=== PATIENT | female | born 1995 | race Caucasian/White ===

== ENCOUNTER 2021-02-12 17:58 | Emergency (ER) | payer OTHER ==
[~2021-02-12] VITALS: Ht 162.6 cm; Wt 111.1 kg
--- NOTE | 2021-02-12 18:08 | NUR ---
TO ER BED 2, C/O LT EXTREMITY PAIN 03/13, ANKLE FRACTURE FROM MARY BROWN, GISELLEOX4. FAMILY AT BEDSIDE
[2021-02-12] MEDS ORDERED: KETOROLAC TROMETHAMINE INJ 60 MG/2 ML VIAL IM ONE (19:30)
[2021-02-12] MEDS ORDERED: KETOROLAC TROMETHAMINE INJ 30 MG/ML VIAL ONE (19:50)
[2021-02-12] MEDS ORDERED: MORPHINE SULFATE INJ 2 MG/ML DISP.SYRIN IM ONE (20:00)
--- NOTE | 2021-02-12 20:16 | NUR ---
verbal order given to give IM medications as IV
[2021-02-12] MEDS ORDERED: MORPHINE SULFATE INJ 4 MG/ML DISP.SYRIN ONE ×2 (20:24→23:27)
[2021-02-12] MEDS ORDERED: CYCLOBENZAPRINE 10 MG TABLET PO ONE (22:00)
[2021-02-12] MEDS ORDERED: ONDANSETRON HCL/PF 4 MG/2 ML VIAL IV ONE (22:00)
[2021-02-12] MEDS ORDERED: ACETAMINOPHEN 325 MG TABLET PO ONE (22:00)
[2021-02-12] MEDS ORDERED: CYCLOBENZAPRINE 10 MG TABLET ONE (22:12)
[2021-02-12] MEDS ORDERED: ONDANSETRON HCL/PF 4 MG/2 ML VIAL ONE (22:12)
[2021-02-12] MEDS ORDERED: ACETAMINOPHEN ES 500 MG TABLET ONE (22:14)
[2021-02-12] MEDS ORDERED: MORPHINE SULFATE INJ 2 MG/ML DISP.SYRIN IV ONE (23:00)
--- NOTE | 2021-02-12 23:25 | NUR ---
CALLED HARI TO HAVE IMAGE READ
[2021-02-13] MEDS ORDERED: CYCL5TAB PO (00:01)
--- NOTE | 2021-02-13 00:10 | NUR ---
Patient discharged to home in stable condition. Written and verbal after care instructions given. Patient verbalizes understanding of instruction. IV removed. Catheter intact and site benign. Pressure and 4x4 applied to site. No bleeding noted. patient wheel chaired out to vehicile , family driving her home.
[2021-02-13 00:24] VITALS: BP 143/91
== END 2021-02-13 00:10 | disposition home or self-care (01) ==
LOC: ER 18:03
DX: M54.32 Sciatica, left side (principal); J45.909 Unspecified asthma, uncomplicated; E03.9 Hypothyroidism, unspecified; Z90.49 Acquired absence of other specified parts of digestive tract
CPT/HCPCS: 73503; 73552; 73564; 73610; 84703; 93971; 96372; 96374; 96375; 96376; 99285; J1885; J2270 ×2; J2405; 73502

== ENCOUNTER 2021-07-18 13:09 | Emergency (ER) | payer OTHER ==
[~2021-07-18] VITALS: Ht 162.6 cm; Wt 111.1 kg
[~2021-07-18 13:09] MED LIST: CYCL5TAB PO
[2021-07-18 13:24] VITALS: BP 167/98
--- NOTE | 2021-07-18 13:34 | NUR ---
PT CAME TO ER C/O BILATERAL KNEE PAIN S/P SLIP/FALL GOING DOWN STAIRS THIS MORNING. REPORTS BACK PAIN WELL. REPORTS VAGINAL BLEEDING S/P SLIP TODAY. DENIES . AAOX4, BREATHING EVEN AND UNLABORED. AMBULATORY. CHANGED TO GOWN. Addendum: 07/18/21 at 1545 by AD C/O BILATERAL FOOT PAIN WELL
--- NOTE | 2021-07-18 14:51 | NUR ---
[employer] AT BEDSIDE
[2021-07-18] MEDS ORDERED: IBUP-1955 PO (14:58)
--- NOTE | 2021-07-18 15:40 | NUR ---
Patient discharged to home in stable condition. Written and verbal after care instructions given. Patient verbalizes understanding of instruction.
== END 2021-07-18 15:41 | disposition home or self-care (01) ==
LOC: ER 13:16
DX: S93.691A Other sprain of right foot, initial encounter (principal); S93.692A Other sprain of left foot, initial encounter; N91.2 Amenorrhea, unspecified; M54.50 Low back pain, unspecified; J45.909 Unspecified asthma, uncomplicated; E03.9 Hypothyroidism, unspecified; Z90.49 Acquired absence of other specified parts of digestive tract; W01.0XXA Fall on same level from slipping, tripping and stumbling without subsequent striking against object, initial encounter; Y93.89 Activity, other specified; Y92.89 Other specified places as the place of occurrence of the external cause; Y99.8 Other external cause status
CPT/HCPCS: 73630-TC; 84703-TC

== ENCOUNTER 2022-02-03 08:22 | Emergency (ER) | payer OTHER ==
[~2022-02-03] VITALS: Ht 162.6 cm; Wt 117.9 kg
[~2022-02-03 08:22] MED LIST changes: +IBUP-1955 PO
[2022-02-03] MEDS ORDERED: PRED20TA PO (09:43)
[2022-02-03] MEDS ORDERED: DIPH25CA83 PO (09:43)
[2022-02-03] MEDS ORDERED: FAMO-131 PO (09:43)
[2022-02-03] MEDS ORDERED: predniSONE 20 MG TABLET ONE (09:52)
--- NOTE | 2022-02-03 09:55 | NUR ---
BIBS C/O DIFFUSED BODY RASH AND ITCHINESS, COUGH AND COLDS X2DAYS. OXYGEN SATURATION IN ROOM AIR IS AT 99%. WILL CONTINUE TO MONITOR THE PATIENT.
--- NOTE | 2022-02-03 09:59 | NUR ---
Patient discharged to home in stable condition. Written and verbal after care instructions given. Patient verbalizes understanding of instruction.
[2022-02-03] MEDS ORDERED: predniSONE 20 MG TABLET PO ONE (10:00)
[2022-02-03 10:01] VITALS: BP 141/86
== END 2022-02-03 10:01 | disposition home or self-care (01) ==
LOC: ER 08:23
DX: L50.0 Allergic urticaria (principal); L29.9 Pruritus, unspecified; R21 Rash and other nonspecific skin eruption; J45.909 Unspecified asthma, uncomplicated; E03.9 Hypothyroidism, unspecified; Z90.49 Acquired absence of other specified parts of digestive tract; Z91.02 Food additives allergy status
CPT/HCPCS: 99283; J7512